=== PATIENT | female | born 1960 | race Caucasian/White ===

== ENCOUNTER 2019-05-25 13:09 | Emergency (ER) | payer OTHER ==
[2019-05-25 14:36] LABS: ADD MAN DIFF? NO
[2019-05-25 14:39] LABS: WHITE BLOOD COUNT 9.5 10^3/ul (4.8-10.8)
[2019-05-25 14:39] LABS: BASOPHILS % 0.3 % (0.0-2.0); EOSINOPHILS # 0.1 10^3/ul (0.0-0.5); EOSINOPHILS % 0.6 % (0.0-7.0); HEMATOCRIT 43.1 % (37.0-47.0); HEMOGLOBIN 14.9 g/dl (12.0-16.0); LYMPHOCYTES # 1.9 10^3/ul (0.8-2.9); LYMPHOCYTES % 20.1 % (15.0-51.0); MEAN CORPUSCULAR HEMOGLOBIN 31.8 pg (29.0-33.0); MEAN CORPUSCULAR HGB CONC 34.6 g/dl (32.0-37.0); MEAN CORPUSCULAR VOLUME 92.1 fl (82.0-101.0); MEAN PLATELET VOLUME 8.7 fl (7.4-10.4); MONOCYTE # 0.6 10^3/ul (0.3-0.9); MONOCYTES % 6.7 % (0.0-11.0); NEUTROPHIL # 6.8 10^3/ul (1.6-7.5); NEUTROPHILS % 71.9 % (39.0-77.0); PLATELET COUNT 303 10^3/UL (140-415); RED BLOOD COUNT 4.68 10^6/ul (4.20-5.40); RED CELL DISTRIBUTION WIDTH 12.2 % (11.5-14.5)
[2019-05-25 14:55] LABS: ADD UMIC YES; UR ASCORBIC ACID NEGATIVE (NEGATIVE); UR BILIRUBIN (Dip) NEGATIVE (NEGATIVE); UR BLOOD (Dip) 1+ mg/dL (NEGATIVE); UR CLARITY CLEAR (CLEAR); UR COLOR STRAW (YELLOW); UR GLUCOSE (Dip) NEGATIVE (NEGATIVE); UR KETONES (Dip) NEGATIVE (NEGATIVE); UR LEUKOCYTE ESTERASE (Dip) NEGATIVE Leu/ul (NEGATIVE); UR NITRITE (Dip) NEGATIVE (NEGATIVE); UR RBC 0 /HPF (0-5); UR SPECIFIC GRAVITY (Dip) 1.001 (1.003-1.030); UR TOTAL PROTEIN (Dip) NEGATIVE (NEGATIVE); UR UROBILINOGEN (Dip) NEGATIVE (NEGATIVE); UR WBC 0 /HPF (0-5)
[2019-05-25 14:56] LABS: ALANINE AMINOTRANSFERASE 60 IU/L (13-69); ALBUMIN 4.4 g/dl (3.3-4.9); ALBUMIN/GLOBULIN RATIO 0.97; ALKALINE PHOSPHATASE 139 IU/L (42-121); ANION GAP 9 (5-13); ASPARTATE AMINO TRANSFERASE 63 IU/L (15-46); BILIRUBIN,INDIRECT 0.3 mg/dl (0-1.1); BILIRUBIN,TOTAL 0.3 mg/dl (0.2-1.3); BLOOD UREA NITROGEN 7 mg/dl (7-20); CALCIUM 9.4 mg/dl (8.4-10.2); CARBON DIOXIDE 28 mmol/L (21-31); CHLORIDE 98 mmol/L (97-110); CREATININE 0.48 mg/dl (0.44-1.00); Estimated GFR > 60 mL/min (>60); GLUCOSE 113 mg/dl (70-220); LIPASE 55 U/L (23-300); POTASSIUM 4.2 mmol/L (3.5-5.1); SODIUM 135 mmol/L (135-144); TOTAL PROTEIN 8.9 g/dl (6.1-8.1)
[2019-05-25 15:08] LABS: TROPONIN-I < 0.012 ng/ml (0.000-0.120)
[2019-05-25] MEDS: LIDOCAINE/MYLANTA 40 ML BTL PO (15:46)
[2019-05-25] MEDS: FAMOTIDINE 20 MG INJ IV (15:46)
== END 2019-05-25 15:57 | disposition home or self-care (01) ==
LOC: E/R 13:09
DX: R10.13 Epigastric pain (principal); R74.0 Nonspecific elevation of levels of transaminase and lactic acid dehydrogenase [LDH]; I10 Essential (primary) hypertension; Z79.82 Long term (current) use of aspirin; Z79.01 Long term (current) use of anticoagulants
CPT/HCPCS: 36415; 71045; 80053; 81001; 83690; 84484; 85025; 93005; 96374; 99285-25